=== PATIENT | female | born 1970 | race African-American/Black ===

== ENCOUNTER 2025-06-24 14:12 | Inpatient (IN) | payer MEDICARE, OTHER ==
[~2025-06-24] VITALS: Ht 182.9 cm; Wt 79.8 kg
[2025-06-24] MEDS: SODIUM CHLOR 0.9% PF (SALINE LOCK) 10ML VIAL/SYR IV SCH (05:23)
[2025-06-24] MEDS: methylPREDNISolone SOD SUCC 125 MG/2 ML VL IV SCH (06:00)
[~2025-06-24 14:12] MED LIST: DIPH25CA51 PO; FLUO-126 PO; RIS1T GT
[2025-06-24 14:22] VITALS: PULSE 81; RESP 22; O2SAT 98
--- NOTE | 2025-06-24 14:23 | ED.PDOC ---
SOB-HPI HPI Comments 54 y.o female with PMHx of arthritis, asthma, DM, GERD,and schizophrenia p resents to the ED via EMS for a chief complaint of SOB and a cough that began 3- 4 days ago. Upon EMS's arrival on the scene, the patient was observed in a tripod position and had wheezing in all lung deluna. EMS administered a nebulizer treatment, followed by CPAP, achieving a SpO2 in the mid-90s. Additionally, a dose IM Epinephrine and IV magnesium were given en route to the hospital. Patient is also a current tobacco smoker. At bedside, patient remained SOB and was unable to speak in full sentences. no other associating symptoms reported. Time Seen by MD: 14:07 Primary Care Provider: MD RALF Reviewed notes: Nurses Notes, Sales Trainer Notes, Medications, Allergies Information Source: Patient, Emergency Med Personnel Mode of Arrival: EMS Severity: Moderate Timing: Days Duration: Since onset Context: At Rest History of: Asthma Prehospital treatment: 12 Lead EKG, C-Pap, Oxygen, Treatment (EPi IM ) Modifying Factors: Nothing Associated Signs and Symptoms: Cough If cough with SOB: Productive Past Medical History PAST MEDICAL HISTORY: Arthritis, Asthma, DM, GERD, Schizophrenia Surgical History: Denies all surgeries MANAGER DRILLING History: No Pertinent MANAGER DRILLING History Family History Family History: Unknown Social History Smoker: Cigarettes Alcohol: Denies ETOH Use Drugs: Denies Drug Use Lives In: Home Constitutional: denies: chills, diaphoresis, fatigue, fever, malaise, sweats, weakness, others EENTM: denies: blurred vision, double vision, ear bleeding, ear discharge, ear drainage, ear pain, ear ringing, eye pain, eye redness, hearing loss, mouth pain, mouth swelling, nasal discharge, nose bleeding, nose congestion, nose pain, photophobia, tearing, throat pain, throat swelling, voice changes, others Respiratory: reports: cough, SOB at rest, shortness of breath, SOB with excertion; denies: hemoptysis, orthopnea, stridor, wheezing, others Cardiovascular: denies: chest pain, dizzy spells, diaphoresis, Dyspnea on exertion, edema, irregular heart beat, left arm pain, lightheadedness, palpitations, PND, syncope, others Gastrointestinal: denies: abdomen distended, abdominal pain, blood streaked bowels, constipated, diarrhea, dysphagia, difficulty swallowing, hematemesis, melena, nausea, poor appetite, poor fluid intake, rectal bleeding, rectal pain, vomiting, others Genitourinary: denies: abnormal vagina bleeding, burning, dyspareunia, dysuria, flank pain, frequency, hematuria, incontinence, pain, , vagina discharge, urgency, others Neurological: denies: dizziness, fainting, headache, left sided numbness, left sided weakness, numbness, paresthesia, pre-existing deficit, right sided numbness, right sided weakness, seizure, speech problems, tingling, tremors, weakness, others Musculoskeletal: denies: back pain, gout, joint pain, joint swelling, muscle pain, muscle stiffness, neck pain, others Integumetry: denies: bruises, change in color, change in hair/nails, dryness, laceration, lesions, lumps, rash, wounds, others Allergic/Immunocompromised: denies: Difficulty Healing, Frequent Infections, Hives, Itching, others Hematologic/Lymphatic: denies: anemia, blood clots, easy bleeding, easy bruising, swollen glands, others Endocrine: denies: excessive hunger, excessive sweating, excessive thirst, excessive urination, flushing, intolerance to cold, intolerance to heat, unexplained weight gain, unexplained weight loss, others Psychiatric: denies: anxiety, bipolar disorder, depression, hopeless, panic disorder, schizophrenia, sleepless, suicidal, others All Other Systems: Reviewed and Negative Physical Exam General Appearance: Moderate Distress HEENT: Other (Vitals and face symmetric. Moist mucous membranes.) Neck: Full Range of Motion, Normal Inspection Respiratory: Accessory Muscle Use, Decreased Breath Sounds, Respiratory Distress, Wheezing Cardiovascular: No Edema, No JVD, Regular Rate/Rhythm Breast Exam: Deferred Gastrointestinal: Non Tender, Soft Genitalia: Deferred Pelvic: Deferred Rectal: Deferred Extremities: Normal inspection, Normal range of motion, Non-tender, No pedal edema Neurologic: Alert (Oriented x4), Other (No gross focal deficit.) Cerebellar Function: NOT DONE Reflexes: NOT DONE Skin: Dry, Normal Color, Warm Lymphatic: NOT DONE Was a procedure done? Was a procedure done?: No Differential Dx Differential Diagnosis: Asthma, Bronchitis, CHF, COPD, Pneumonia, Respiratory Distress, URI X-Ray, Labs, Meds, VS Vital Signs Date Time Temp Pulse Resp B/P (MAP) Pulse Ox O2 Delivery O2 Flow Rate FiO2 06/24/25 14:35 98 Nasal Cannula* 6 44 06/24/25 14:22 81 22 98 Nasal Cannula* 6 44 06/24/25 14:21 22 99 Nasal Cannula* 4 36 06/24/25 14:20 98.6 81 22 167/108 (127) 98 98.6 06/24/25 14:15 97.7 90 28 161/117 97 97.7 Lab Test 06/24/25 14:53 Range/Units White Blood Count 6.8 4.4-10.8 10^3/uL Red Blood Count 5.11 4.0-5.20 10^6/uL Hemoglobin 15.5 12.2-16.2 g/dL Hematocrit 47.1 H 36.0-46.0 % Mean Corpuscular Volume 92.1 80.0-100.0 fL Mean Corpuscular Hemoglobin 30.2 28.0-32.0 pg Mean Corpuscular Hemoglobin Concent 32.8 32.0-36.0 g/dL Red Cell Distribution Width 15.0 H 11.8-14.3 % Platelet Count 331 140-450 10^3/uL Mean Platelet Volume 7.5 6.9-10.8 fL Neutrophils (%) (Auto) 55.4 37.0-80.0 % Lymphocytes (%) (Auto) 25.2 10.0-50.0 % Monocytes (%) (Auto) 10.9 0.0-12.0 % Eosinophils (%) (Auto) 7.8 H 0.0-7.0 % Basophils (%) (Auto) 0.7 0.0-2.0 % Neutrophils # (Auto) 3.8 1.6-8.6 10 ^3/uL Lymphocytes # (Auto) 1.7 0.4-5.4 10 ^3/uL Monocytes # (Auto) 0.7 0-1.3 10 ^3/uL Eosinophils # (Auto) 0.5 0-0.8 10 ^3/uL Basophils # (Auto) 0 0-0.2 10 ^3/uL Nucleated Red Blood Cells 0.0 % Sodium Level 144 136-145 mmol/L Potassium Level 3.8 3.5-5.1 mmol/L Chloride Level 110 H 98-107 mmol/L Carbon Dioxide Level 28 20-31 mmol/L Anion Gap 6 5-15 Blood Urea Nitrogen 7 L 9-23 mg/dL Creatinine 0.92 0.550-1.02 mg/dL Glomerular Filtration Rate Calc 73 >90 mL/min BUN/Creatinine Ratio 7.6 L 10.0-20.0 Serum Glucose 157 H 74-106 mg/dL Lactic Acid Level Pending Calcium Level 9.1 8.7-10.4 mg/dL Troponin I High Sensitivity 3 L </=34 ng/L B-Type Natriuretic Peptide 72.47 0-100 pg/mL Current Medications Medications (Trade) Dose Ordered Sig/Radha Route Start Time Stop Time Status Last Admin Methylprednisolone Sodium Succinate (Solu Medrol) 125 mg ONCE ONCE IV 06/24/25 14:15 06/24/25 14:16 DC 06/24/25 15:16 Albuterol (Ventolin Medneb) 5 mg ONCE ONCE NEB 06/24/25 14:15 06/24/25 14:16 DC 06/24/25 14:28 Ipratropium [place] (Atrovent Medneb) 0.5 mg ONCE ONCE NEB 06/24/25 14:15 06/24/25 14:16 DC 06/24/25 14:28 Ceftriaxone Sodium 50 ml @ 100 mls/hr ONCE ONCE IV 06/24/25 14:45 06/24/25 15:14 DC 06/24/25 15:15 PROCEDURE(s): CXRP - CHEST PORTABLE REASON: sob ORDER NUMBER(s): [id number], ACCESSION NUMBER(s): [id number] CHEST RADIOGRAPH Indication: sob Technique: Single frontal view of the chest was obtained Comparison: None FINDINGS: Lines and Tubes: None Lungs: Airspace disease right lower lobe. Pleura: No effusion. No pneumothorax. Cardiomediastinal contours: Unremarkable Bones: No acute osseous abnormality. IMPRESSION: 1. Airspace disease right lower lobe. X-Ray, Labs, Meds, VS Comment 54 y.o female with PMHx of arthritis, asthma, DM, GERD,and schizophrenia presents to the ED via EMS for a chief complaint of SOB and a cough that began 3-4 days ago Vitals remarkable for respiratory rate 28, BP 61/117, oxygen saturation 90% on room air hypoxic Exam remarkable for respiratory distress, bilateral wheezes and diminished breath sounds, accessory muscle use Rhythm strip independently interpreted by me: Sinus rhythm, rate 90, no ectopy. Chest x-ray IMPRESSION: 1. Airspace disease right lower lobe. CBC, basic metabolic panel, BNP and troponin unremarkable. Lactate pending Patient treated with the following in the ED: Albuterol 5 mg/Atrovent 0.5 mg nebulized, Solu-Medrol 125 mg IV, Rocephin 1 g IV, Zithromax 500 mg IV On re-evaluation, patient is saturating normally on nasal cannula and respiratory distress has improved. Other vitals were stable. Plan is to admit the patient for IV antibiotics and respiratory support as needed. Time of 1ST Reevaluation: 14:16 Reevaluation 1ST: Unchanged Patient Education/Counseling: Diagnosis, Treatment, Prognosis Family Education/Counseling: No Family Present SEPSIS Sepsis Screen Physician Orders Chest Portable (06/24/25 14:14) Urinalysis (06/24/25 14:14) Electrocardigram (06/24/25 14:14) Troponin-I Hs (06/24/25 15:14) Lactic Acid W/ Reflex Order (06/24/25 14:35) Blood Culture (06/24/25 14:35) Azithromycin 500mg/ 250ml (Zithromax 50 (06/24/25 15:30) Rapid Influenza A&B (06/24/25 14:35) Covid19 Antigen [place]abel (06/24/25 ) Vital Signs Date Time Temp Pulse Resp B/P (MAP) Pulse Ox O2 Delivery O2 Flow Rate FiO2 06/24/25 14:35 98 Nasal Cannula* 6 44 06/24/25 14:22 81 22 98 Nasal Cannula* 6 44 06/24/25 14:21 22 99 Nasal Cannula* 4 36 06/24/25 14:20 98.6 81 22 167/108 (127) 98 98.6 06/24/25 14:15 97.7 90 28 161/117 97 97.7 Laboratory Tests Test 06/24/25 14:53 Lactic Acid Level Pending White Blood Count 6.8 10^3/uL (4.4-10.8) Medications Medications Dose Ordered Sig/Radha Route Start Time Stop Time Status Last Admin Dose Admin Albuterol 5 mg ONCE ONCE NEB 06/24/25 14:15 06/24/25 14:16 DC 06/24/25 14:28 Ceftriaxone Sodium 50 ml @ 100 mls/hr ONCE ONCE IV 06/24/25 14:45 06/24/25 15:14 DC 06/24/25 15:15 Ipratropium [place] 0.5 mg ONCE ONCE NEB 06/24/25 14:15 06/24/25 14:16 DC 06/24/25 14:28 Methylprednisolone Sodium Succinate 125 mg ONCE ONCE IV 06/24/25 14:15 06/24/25 14:16 DC 06/24/25 15:16 Departure 1 Departure Time of Disposition: 15:41 Impression: Primary Impression: Acute hypoxic respiratory failure Additional Impressions: Asthma exacerbation Pneumonia Disposition: ADMITTED INPATIENT Admit to: Tele Condition: Guarded Critical Care Note Critical Care Time?: Yes (35 min-critical care time only) Critical care comment: Critical care time including multiple bedside re-evaluations, review of lab and imaging studies, and discussion of the case with the admitting provider. Patient is high risk for respiratory decompensation. Stability Stability form required: No I personally scribed for LIGIA FERREIRA MD ([email or web address]) on 06/24/25 at 14:23. Electronically submitted by Gillian Gonzales ([facility]). LIGIA FERREIRA MD Jun 24, 2025 14:23
[2025-06-24] MEDS: IPRATROPIUM BROM 0.5 MG/2.5ML INH SOL NEB ONE ×2 (14:28→18:25)
[2025-06-24] MEDS: ALBUTEROL SULF 2.5 MG/0.5ML(0.5%) NEB SOLN NEB ONE ×2 (14:28→18:25)
--- NOTE | 2025-06-24 14:40 | DVH ---
CHEST RADIOGRAPH Indication: sob Technique: Single frontal view of the chest was obtained Comparison: None FINDINGS: Lines and Tubes: None Lungs: Airspace disease right lower lobe. Pleura: No effusion. No pneumothorax. Cardiomediastinal contours: Unremarkable Bones: No acute osseous abnormality. IMPRESSION: 1. Airspace disease right lower lobe.
[2025-06-24] MEDS: cefTRIAXone 1GM/50ML D5W 50 ML IV ONE (15:15)
[2025-06-24] MEDS: methylPREDNISolone SOD SUCC 125 MG/2 ML VL IV ONE (15:16)
[2025-06-24 15:19] LABS: Hematocrit 47.1 % (36.0-46.0); Hemoglobin 15.5 g/dL (12.2-16.2); Mean Corpuscular Hemoglobin 30.2 pg (28.0-32.0); Mean Corpuscular Volume 92.1 fL (80.0-100.0); Nucleated Red Blood Cells % 0.0 %
[2025-06-24 15:24] LABS: Potassium 3.8 mmol/L (3.5-5.1); Sodium 144 mmol/L (136-145)
[2025-06-24 15:25] LABS: Anion Gap 6 (5-15); Carbon Dioxide 28 mmol/L (20-31)
[2025-06-24 15:26] LABS: Calcium 9.1 mg/dL (8.7-10.4)
[2025-06-24 15:30] LABS: BUN/Creatinine Ratio 7.6 (10.0-20.0); Blood Urea Nitrogen 7 mg/dL (9-23); Chloride 110 mmol/L (98-107); Glucose 157 mg/dL (74-106)
[2025-06-24] MEDS: AZITHROMYCIN 500MG/ 250ML 250 ML IV ONE (16:41)
[2025-06-24] MEDS: hydrALAZINE HCL 20 MG/ML VL IV ONE (17:04)
[2025-06-24] MEDS: LABETALOL HCL 20 MG/4 ML VL IV ONE (18:05)
[2025-06-24 18:09] LABS: Urine Protein, UAD TRACE (Negative)
[2025-06-24] MEDS: ALBUTEROL SULF 2.5 MG/0.5ML(0.5%) NEB SOLN ONE (18:26)
[2025-06-24] MEDS: IPRATROPIUM BROM 0.5 MG/2.5ML INH SOL ONE (18:26)
--- NOTE | 2025-06-24 19:51 | DVHHP2 ---
Admitting Diagnosis: Shortness of breaths History of Present Illness 54 y.o female with PMHx of arthritis, asthma, DM, GERD,and schizophrenia presents to the ED via EMS for a chief complaint of SOB and a cough that began 3-4 days ago. Upon EMS's arrival on the scene, the patient was observed in a tripod position and had wheezing in all lung deluna. EMS administered a nebulizer treatment, followed by CPAP, achieving a SpO2 in the mid-90s. Additionally, a dose IM Epinephrine and IV magnesium were given en route to the hospital. Patient is also a current tobacco smoker. At bedside, patient remained SOB and was unable to speak in full sentences. no other associating symptoms reported. PAST MEDICAL HISTORY: Arthritis, Asthma, DM, GERD, Schizophrenia Surgical History: Denies all surgeries BANKING SERVICES CLERK History: No Pertinent BANKING SERVICES CLERK History Family History Family History: Unknown Social History Smoker: Cigarettes Alcohol: Denies ETOH Use Drugs: Denies Drug Use Lives In: Home Patient Family History: Diabetes mellitus G8 MOTHER Hypertension G8 MOTHER Allergies: Coded Allergies: NO KNOWN ALLERGIES (Unverified , 06/24/17) Home Meds Reported Medications Fluoxetine Hcl (Fluoxetine Hcl) 10 Mg Cap, 10 MG PO DAILY for 30 Days, MG 06/24/17 Diphenhydramine Hcl (BENADRYL CAPSULE) 25 Mg Cp, 50 MG PO DAILY, CP 06/24/17 Risperidone (RisperDAL TABLET) 1 Mg Tb, 1 MG GT 06/24/17 Current Medications Current Medications Medications (Trade) Dose Ordered Sig/Radha Route PRN Reason Start Time Stop Time Status Last Admin Ceftriaxone Sodium 50 ml @ 100 mls/hr DAILY@09 IV 06/25/25 09:00 UNV Azithromycin 250 ml @ 125 mls/hr DAILY IV 06/25/25 10:00 UNV Methylprednisolone Sodium Succinate (Solu Medrol) 60 mg Q8HR IV 06/24/25 22:00 UNV Albuterol (Ventolin Medneb) 2.5 mg Q4HWA NEB 06/24/25 22:00 UNV Ipratropium [place] (Atrovent Medneb) 0.5 mg Q4HWA NEB 06/24/25 22:00 UNV Vital Signs Vital Signs Date Time Temp Pulse Resp B/P (MAP) Pulse Ox O2 Delivery O2 Flow Rate FiO2 06/24/25 19:05 90 164/112 06/24/25 18:15 20 96 Non-Rebreather 15 N/A 06/24/25 14:20 98.6 98.6 Physical Exam 54 years old woman, well nourished well. No apparent distress HEENT-atraumatic normocephalic Heart-regular rate and rhythm Lungs decreased breath sounds throughout the lung Abdomen nondistended nontender nondistended Musculoskeletal-no edema cyanosis SEPSIS Sepsis Screen Date sepsis recognized/suspect: Jun 24, 2025 Time Sepsis recognized/suspect: 1433 Recent Procedure: No On Antibiotic Therapy: No Respiratory Rate >20: No Heart Rate >90: No Temp<36 C (96.8 F) or >38.3 C: No SBP <90 or MAP <65 mmHG: No New Acute Mental Status Change: No Is the patient on CPAP, BIPAP,: No Physician Orders Chest Portable (06/24/25 14:14) Electrocardigram (06/24/25 14:14) Blood Culture (06/24/25 14:35) Rapid Influenza A&B (06/24/25 14:35) Covid19 Antigen Mabel (06/24/25 ) Bed Rest With Hob At 30-45 Deg (06/24/25 18:59) Communication Order (06/24/25 18:59) Ceftriaxone 1gm/50ml D5w (Rocephin) (06/25/25 09:00) Azithromycin 500mg/ 250ml (Zithromax 50 (06/25/25 10:00) Respiratory Culture W/ Gs (06/24/25 20:16) Methylprednisolone Sod Succ (Solu Medrol (06/24/25 22:00) Albuterol Medneb (Ventolin Medneb) (06/24/25 22:00) Ipratropium Medneb (Atrovent Medneb) (06/24/25 22:00) Vital Signs Date Time Temp Pulse Resp B/P (MAP) Pulse Ox O2 Delivery O2 Flow Rate FiO2 06/24/25 19:05 90 164/112 06/24/25 18:15 20 96 Non-Rebreather 15 N/A 06/24/25 18:05 93 133/103 06/24/25 18:00 90 22 164/112 (129) 98 06/24/25 17:04 159/109 06/24/25 16:00 66 22 154/107 (123) 98 06/24/25 14:35 98 Nasal Cannula* 6 44 06/24/25 14:22 81 22 98 Nasal Cannula* 6 44 06/24/25 14:21 22 99 Nasal Cannula* 4 36 06/24/25 14:20 98.6 81 22 167/108 (127) 98 98.6 06/24/25 14:15 97.7 90 28 161/117 97 97.7 Laboratory Tests Test 06/24/25 14:53 Lactic Acid Level 1.1 mmol/L (0.4-2.0) White Blood Count 6.8 10^3/uL (4.4-10.8) Medications Medications Dose Ordered Sig/Radha Route Start Time Stop Time Status Last Admin Dose Admin Albuterol 5 mg ONCE ONCE NEB 06/24/25 14:15 06/24/25 14:16 DC 06/24/25 14:28 Albuterol 5 mg ONCE ONCE NEB 06/24/25 18:15 06/24/25 18:16 DC 06/24/25 18:25 Azithromycin 250 ml @ 125 mls/hr ONCE ONCE IV 06/24/25 15:30 06/24/25 17:29 DC 06/24/25 16:41 Ceftriaxone Sodium 50 ml @ 100 mls/hr ONCE ONCE IV 06/24/25 14:45 06/24/25 15:14 DC 06/24/25 15:15 Hydralazine HCl 5 mg ONCE ONCE IV 06/24/25 16:45 06/24/25 16:46 DC 06/24/25 17:04 Ipratropium [place] 0.5 mg ONCE ONCE NEB 06/24/25 14:15 06/24/25 14:16 DC 06/24/25 14:28 Ipratropium [place] 0.5 mg ONCE ONCE NEB 06/24/25 18:15 06/24/25 18:16 DC 06/24/25 18:25 Labetalol HCl 10 mg ONCE ONCE IV 06/24/25 18:00 06/24/25 18:01 DC 06/24/25 18:05 Methylprednisolone Sodium Succinate 125 mg ONCE ONCE IV 06/24/25 14:15 06/24/25 14:16 DC 06/24/25 15:16 Results Labs Test 06/24/25 17:32 06/24/25 15:47 06/24/25 14:53 Range/Units Urine Color Yellow Yellow Urine Clarity Clear Clear Urine pH 5.5 5.0-9.0 Urine Specific [place] 1.016 1.001-1.035 Urine Protein Trace H Negative Urine Ketones Negative Negative Urine Blood Negative Negative /uL Urine Nitrite Negative Negative Urine Bilirubin Negative Negative Urine Urobilinogen Normal Negative mg/dL Urine Leukocyte Esterase Negative Negative /uL Urine RBC 3 0 - 4 /hpf Urine Microscopic WBC 1 0-5 /HPF Urine Squamous Epithelial Cells Few <5 /hpf Urine Bacteria None seen None Seen /hpf Urine Hyaline Casts Few 0 - 2 /lpf Urine Mucus Few None Seen Urine Glucose Normal Normal mg/dL Troponin I High Sensitivity 4 </=34 ng/L White Blood Count 6.8 4.4-10.8 10^3/uL Red Blood Count 5.11 4.0-5.20 10^6/uL Hemoglobin 15.5 12.2-16.2 g/dL Hematocrit 47.1 H 36.0-46.0 % Mean Corpuscular Volume 92.1 80.0-100.0 fL Mean Corpuscular Hemoglobin 30.2 28.0-32.0 pg Mean Corpuscular Hemoglobin Concent 32.8 32.0-36.0 g/dL Red Cell Distribution Width 15.0 H 11.8-14.3 % Platelet Count 331 140-450 10^3/uL Mean Platelet Volume 7.5 6.9-10.8 fL Neutrophils (%) (Auto) 55.4 37.0-80.0 % Lymphocytes (%) (Auto) 25.2 10.0-50.0 % Monocytes (%) (Auto) 10.9 0.0-12.0 % Eosinophils (%) (Auto) 7.8 H 0.0-7.0 % Basophils (%) (Auto) 0.7 0.0-2.0 % Neutrophils # (Auto) 3.8 1.6-8.6 10 ^3/uL Lymphocytes # (Auto) 1.7 0.4-5.4 10 ^3/uL Monocytes # (Auto) 0.7 0-1.3 10 ^3/uL Eosinophils # (Auto) 0.5 0-0.8 10 ^3/uL Basophils # (Auto) 0 0-0.2 10 ^3/uL Nucleated Red Blood Cells 0.0 % Sodium Level 144 136-145 mmol/L Potassium Level 3.8 3.5-5.1 mmol/L Chloride Level 110 H 98-107 mmol/L Carbon Dioxide Level 28 20-31 mmol/L Anion Gap 6 5-15 Blood Urea Nitrogen 7 L 9-23 mg/dL Creatinine 0.92 0.550-1.02 mg/dL Glomerular Filtration Rate Calc 73 >90 mL/min BUN/Creatinine Ratio 7.6 L 10.0-20.0 Serum Glucose 157 H 74-106 mg/dL Lactic Acid Level 1.1 0.4-2.0 mmol/L Calcium Level 9.1 8.7-10.4 mg/dL B-Type Natriuretic Peptide 72.47 0-100 pg/mL Primary Diagnosis Shortness of breaths likely due to asthma exacerbation Right lung pneumonia Plan Ceftriaxone, azithromycin for empiric antibiotics Check pro, sputum culture Solu-Medrol 60 q.8 hours Regular diet Resume home meds Full code Lovenox for DVT prophylaxis PPI for GI prophylaxis Plan discussed with: Patient Problems List: (1) Pneumonia Status: Acute (2) Asthma exacerbation Status: Acute (3) Acute hypoxic respiratory failure Status: Acute Date of Service: Jun 24, 2025 Billing Provider: SAMUEL BARRON MD Common Visit Codes: [id number] INP/OBS CARE (HIGH) SAMUEL BARRON MD Jun 24, 2025 19:51
[2025-06-24] MEDS ORDERED: ONDANSETRON HCL 4 MG/2 ML VIAL IV PRN (20:30)
[2025-06-24] MEDS ORDERED: DOCUSATE SOD 100 MG CAP PO PRN (20:30)
[2025-06-24] MEDS ORDERED: ACETAMINOPHEN 325 MG TAB PO PRN (20:30)
[2025-06-24 21:40] VITALS: PULSE 88; RESP 18; O2SAT 98
[2025-06-24 21:49] VITALS: PULSE 87; RESP 19; O2SAT 98
[2025-06-24 21:51] VITALS: O2SAT 98
[2025-06-24 22:20] VITALS: BP 146/91; PULSE 87; RESP 20; O2SAT 98
[2025-06-25] VITALS (10 sets, daily range): BP systolic 140; BP diastolic 84; PULSE 69–90; RESP 13–31; TEMP 98; O2SAT 94–100
[2025-06-25] MEDS: ALBUTEROL SULF 2.5 MG/0.5ML(0.5%) NEB SOLN NEB SCH (06:00)
[2025-06-25 06:22] LABS: Hematocrit 48.7 % (36.0-46.0); Hemoglobin 16.3 g/dL (12.2-16.2); Mean Corpuscular Hemoglobin 30.7 pg (28.0-32.0); Mean Corpuscular Volume 91.5 fL (80.0-100.0); Nucleated Red Blood Cells % 0.1 %
[2025-06-25 06:38] LABS: Albumin 4.5 g/dL (3.2-4.8); Alkaline Phosphatase 100 U/L (46-116); Anion Gap 9 (5-15); BUN/Creatinine Ratio 10.0 (10.0-20.0); Bilirubin, Total 0.4 mg/dL (0.2-1.0); Calcium 9.5 mg/dL (8.7-10.4); Carbon Dioxide 25 mmol/L (20-31); Potassium 4.4 mmol/L (3.5-5.1); Sodium 141 mmol/L (136-145); Total Protein 7.8 g/dL (5.7-8.2)
[2025-06-25 06:40] LABS: Alanine Aminotransferase 40 U/L (7-40); Blood Urea Nitrogen 8 mg/dL (9-23); Chloride 107 mmol/L (98-107); Glucose 132 mg/dL (74-106)
[2025-06-25] MEDS: IPRATROPIUM BROM 0.5 MG/2.5ML INH SOL NEB SCH (07:27)
[2025-06-25] MEDS: risperiDONE 1 MG TAB PO SCH (09:57)
[2025-06-25] MEDS: PANTOPRAZOLE 40 MG/10 ML VIAL INJ IV SCH (09:59)
[2025-06-25] MEDS: ENOXAPARIN SOD 40 MG/0.4 ML SYRINGE SC SCH (09:59)
[2025-06-25] MEDS: HYDROcodone-ACET 5/325MG TAB PO PRN (10:13)
[2025-06-25] MEDS: AZITHROMYCIN 500MG/ 250ML 250 ML IV SCH (10:13)
[2025-06-25 10:16] LABS: COVID19 ANTIGEN SOFIA FIA NEGATIVE (NEGATIVE)
[2025-06-25] MEDS: cefTRIAXone 1GM/50ML D5W 50 ML IV SCH (15:02)
--- NOTE | 2025-06-25 18:54 | DVHPN2 ---
Subjective Cross covering for [place] [facility] Hospitalist today. Patient's chart is reviewed and patient is seen evaluated and discussed with the nurse. Admitted for generalized weakness and noted to have a influenza type B infection. Oxygenating normally on room air. Changes from previous H/P or p: No Changes Objective Vitals Vital Signs Date Time Temp Pulse Resp B/P (MAP) Pulse Ox O2 Delivery O2 Flow Rate FiO2 06/25/25 18:21 97 Room Air 0.0 06/25/25 18:21 86 16 06/25/25 18:21 21 06/25/25 17:00 146/96 (113) 06/25/25 11:16 97.8 97.8 Intake/Output Intake and Output 06/25/25 07:00 Intake Total 300 ml Balance 300 ml Intake IV Total 300 ml Exam Alert awake oriented x3. HEENT neck supple no JVD. Heart regular rate and rhythm S1-S2. Lungs fair air movement without rales wheezes. Abdomen soft nontender positive bowel sounds. Extremities no edema positive pulses. Neurologic no focal deficits Medications Current Medications Medications Dose Ordered Sig/Radha Route Start Time Stop Time Status Last Admin Dose Admin Ceftriaxone Sodium 50 ml @ 100 mls/hr DAILY@1500 IV 06/25/25 15:00 06/25/25 15:02 100 MLS/HR Azithromycin 250 ml @ 125 mls/hr DAILY IV 06/25/25 10:00 06/25/25 10:13 125 MLS/HR Methylprednisolone Sodium Succinate 60 mg Q8HR IV 06/24/25 22:00 06/25/25 14:16 60 MG Albuterol 2.[address] [facility] 06/24/25 22:00 06/25/25 18:11 2.5 MG Ipratropium [place] 0.[address] [facility] 06/24/25 22:00 06/25/25 18:11 0.5 MG Fluoxetine HCl 10 mg DAILY PO 06/25/25 10:00 06/25/25 09:58 10 MG Risperidone 1 mg DAILY PO 06/25/25 10:00 06/25/25 09:57 1 MG Sodium Chloride 10 ml Q8HR IV 06/24/25 22:00 06/25/25 14:17 10 ML Docusate Sodium 100 mg BIDPRN PRN PO 06/24/25 20:30 Acetaminophen 650 mg Q6HP PRN PO 06/24/25 20:30 Acetaminophen/ Hydrocodone Bitart 1 tab Q4HP PRN PO 06/24/25 20:30 06/25/25 14:17 1 TAB Ondansetron HCl 4 mg Q4HP PRN IV 06/24/25 20:30 Enoxaparin Sodium 40 mg DAILY SC 06/25/25 10:00 06/25/25 09:59 40 MG Pantoprazole Sodium 40 mg DAILY IV 06/25/25 10:00 06/25/25 09:59 40 MG Laboratory Results Laboratory Tests 06/25/25 06:00 Chemistry Test 06/25/25 06:00 Albumin 4.5 g/dL (3.2-4.8) Calcium Level 9.5 mg/dL (8.7-10.4) Total Protein 7.8 g/dL (5.7-8.2) LFT Test 06/25/25 06:00 Alanine Aminotransferase (ALT) 40 U/L (7-40) Alkaline Phosphatase 100 U/L (46-116) Aspartate Amino Transferase (AST) 39 U/L (13-40) Total Bilirubin 0.4 mg/dL (0.2-1.0) Urinalysis Test 06/24/25 17:32 Urine Color Yellow (Yellow) Urine Clarity Clear (Clear) Urine pH 5.5 (5.0-9.0) Urine Specific [place] 1.016 (1.001-1.035) Urine Protein Trace (Negative) H Urine Ketones Negative (Negative) Urine Blood Negative /uL (Negative) Urine Nitrite Negative (Negative) Urine Bilirubin Negative (Negative) Urine Urobilinogen Normal mg/dL (Negative) Urine Leukocyte Esterase Negative /uL (Negative) Urine RBC 3 /hpf (0 - 4) Urine Microscopic WBC 1 /HPF (0-5) Urine Squamous Epithelial Cells Few /hpf (<5) Urine Bacteria None seen /hpf (None Seen) Urine Hyaline Casts Few /lpf (0 - 2) Urine Mucus Few (None Seen) Urine Glucose Normal mg/dL (Normal) Microbiology Microbiology Date/Time Source Procedure Growth Status 06/24/25 14:53 Blood Blood Culture - Preliminary NO GROWTH AFTER 24 HOURS OF INCUBATION. Resulted Assessment/Plan Assessment/Plan I will add Tamiflu to her treatment regimen. Continue steroids breathing treatments and rest of supportive care and treatment. Physical therapy evaluation. Further clinical management per clinical course. Plan discussed with: Patient, Other My Orders Orders - SHAWN SOSA MD Procedure Category Date Status Time Oseltamivir 75mg PHA 06/25/25 Verified Capsule (Tamiflu 75mg 22:00 Problem List: (1) Asthma exacerbation (2) Acute hypoxic respiratory failure (3) Influenza B (4) Influenzal bronchitis Date of Service: Jun 25, 2025 Billing Provider: SHAWN SOSA MD Common Visit Codes: [id number] INP/OBS CARE(MOD) SHAWN SOSA MD Jun 25, 2025 18:54
[2025-06-25] MEDS: OSELTAMIVIR 75 MG CAP PO SCH (20:46)
[2025-06-26] VITALS (20 sets, daily range): BP systolic 130–155; BP diastolic 36–96; PULSE 75–114; RESP 14–20; TEMP 97.6–98.3; O2SAT 90–100
--- NOTE | 2025-06-26 18:06 | DVHPN2 ---
Subjective Cross covering for [facility] hospitalist today. Feeling better. Admitted for generalized weakness and noted to have a influenza type B infection. Oxygenating normally on room air. Changes from previous H/P or p: No Changes Objective Vitals Vital Signs Date Time Temp Pulse Resp B/P (MAP) Pulse Ox O2 Delivery O2 Flow Rate FiO2 06/26/25 18:01 84 20 98 06/26/25 17:53 Nasal Cannula 2.0 06/26/25 17:53 28 06/26/25 17:00 98.2 140/36 (70) 98.2 Intake/Output Intake and Output 06/26/25 07:00 Intake Total 950 ml Balance 950 ml Intake Oral 650 ml IV Total 300 ml # Voids 4 Exam Alert awake oriented x3. HEENT neck supple no JVD. Heart regular rate and rhythm S1-S2. Lungs fair air movement without rales wheezes. Abdomen soft nontender positive bowel sounds. Extremities no edema positive pulses. Neurologic no focal deficits Medications Current Medications Medications Dose Ordered Sig/Radha Route Start Time Stop Time Status Last Admin Dose Admin Ceftriaxone Sodium 50 ml @ 100 mls/hr DAILY@1500 IV 06/25/25 15:00 06/26/25 14:40 100 MLS/HR Azithromycin 250 ml @ 125 mls/hr DAILY IV 06/25/25 10:00 06/26/25 08:33 125 MLS/HR Methylprednisolone Sodium Succinate 60 mg Q8HR IV 06/24/25 22:00 06/26/25 14:40 60 MG Albuterol 2.5 mg Q4HWA [facility] 06/24/25 22:00 06/26/25 17:53 2.5 MG Ipratropium [place] 0.5 mg Q4HWA [facility] 06/24/25 22:00 06/26/25 17:53 0.5 MG Fluoxetine HCl 10 mg DAILY PO 06/25/25 10:00 06/26/25 08:33 10 MG Risperidone 1 mg DAILY PO 06/25/25 10:00 06/26/25 08:33 1 MG Sodium Chloride 10 ml Q8HR IV 06/24/25 22:00 06/26/25 08:33 10 ML Docusate Sodium 100 mg BIDPRN PRN PO 06/24/25 20:30 Acetaminophen 650 mg Q6HP PRN PO 06/24/25 20:30 Acetaminophen/ Hydrocodone Bitart 1 tab Q4HP PRN PO 06/24/25 20:30 06/26/25 12:06 1 TAB Ondansetron HCl 4 mg Q4HP PRN IV 06/24/25 20:30 Enoxaparin Sodium 40 mg DAILY SC 06/25/25 10:00 06/26/25 08:32 40 MG Pantoprazole Sodium 40 mg DAILY IV 06/25/25 10:00 06/26/25 08:32 40 MG Oseltamivir Phosphate 75 mg Q12H PO 06/25/25 20:00 06/30/25 08:01 06/26/25 08:32 75 MG Laboratory Results Laboratory Tests 06/25/25 06:00 Urinalysis Test 06/24/25 17:32 Urine Color Yellow (Yellow) Urine Clarity Clear (Clear) Urine pH 5.5 (5.0-9.0) Urine Specific [place] 1.016 (1.001-1.035) Urine Protein Trace (Negative) H Urine Ketones Negative (Negative) Urine Blood Negative /uL (Negative) Urine Nitrite Negative (Negative) Urine Bilirubin Negative (Negative) Urine Urobilinogen Normal mg/dL (Negative) Urine Leukocyte Esterase Negative /uL (Negative) Urine RBC 3 /hpf (0 - 4) Urine Microscopic WBC 1 /HPF (0-5) Urine Squamous Epithelial Cells Few /hpf (<5) Urine Bacteria None seen /hpf (None Seen) Urine Hyaline Casts Few /lpf (0 - 2) Urine Mucus Few (None Seen) Urine Glucose Normal mg/dL (Normal) Microbiology Microbiology Date/Time Source Procedure Growth Status 06/24/25 14:53 Blood Blood Culture - Preliminary NO GROWTH AFTER 48 HOURS OF INCUBATION. Resulted Assessment/Plan Assessment/Plan To continue current supportive care and treatment as she is on. Physical therapy evaluation. Further clinical management per clinical course. Discussed with the nurse regarding care plan Plan discussed with: Patient, Other My Orders Orders - SHAWN SOSA MD Procedure Category Date Status Time Oseltamivir 75mg PHA 06/25/25 In Process Capsule (Tamiflu 75mg 20:00 Pt Request For Service PT 06/25/25 Logged 18:54 * [employer] Operator CONS 06/25/25 Transmitted Consult Hepatitis B Surface LAB 06/26/25 In Process Antigen 01:34 Hepatitis C Antibody LAB 06/26/25 In Process 01:34 Education - Smoking BELIA 06/26/25 In Process Cessation 01:34 * Dietary Consult CONS 06/26/25 Transmitted 01:34 * Rock [employer] Operator CONS 06/26/25 Transmitted Consult 01:34 Problem List: (1) Asthma exacerbation (2) Acute hypoxic respiratory failure (3) Influenza B (4) Influenzal bronchitis Date of Service: Jun 26, 2025 Billing Provider: SHAWN SOSA MD Common Visit Codes: [id number] INP/OBS CARE(MOD) SHAWN SOSA MD Jun 26, 2025 18:06
[2025-06-27] VITALS (11 sets, daily range): BP systolic 144–164; BP diastolic 80–112; PULSE 64–100; RESP 16–20; TEMP 36.9; O2SAT 96–100
[2025-06-27 07:16] LABS: Hematocrit 40.9 % (36.0-46.0); Hemoglobin 13.9 g/dL (12.2-16.2); Mean Corpuscular Hemoglobin 31.0 pg (28.0-32.0); Mean Corpuscular Volume 91.4 fL (80.0-100.0); Nucleated Red Blood Cells % 0.1 %
[2025-06-27 07:38] LABS: Alanine Aminotransferase 29 U/L (7-40); Albumin 4.0 g/dL (3.2-4.8); Alkaline Phosphatase 77 U/L (46-116); Anion Gap 8 (5-15); BUN/Creatinine Ratio 17.5 (10.0-20.0); Blood Urea Nitrogen 14 mg/dL (9-23); Calcium 8.9 mg/dL (8.7-10.4); Carbon Dioxide 27 mmol/L (20-31); Potassium 4.2 mmol/L (3.5-5.1); Sodium 142 mmol/L (136-145); Total Protein 6.5 g/dL (5.7-8.2)
[2025-06-27 07:39] LABS: Bilirubin, Total 0.3 mg/dL (0.2-1.0)
[2025-06-27 07:42] LABS: Chloride 107 mmol/L (98-107); Glucose 122 mg/dL (74-106)
[2025-06-27 11:18] LABS: Hepatitis B Surface Antigen Negative (Negative); Hepatitis C Antibody Negative (Negative)
[2025-06-27] MEDS ORDERED: IPRA0.00 IN (14:31)
[2025-06-27] MEDS ORDERED: TAMIF30 PO (14:31)
[2025-06-27] MEDS ORDERED: MONT-8 PO (14:31)
[2025-06-27] MEDS ORDERED: FAMO-161 PO (14:31)
[2025-06-27] MEDS ORDERED: PRED20TA2 PO (14:31)
--- NOTE | 2025-06-27 14:33 | DVHDS2 ---
Discharge Summary Date of Admission Jun 24, 2025 at 20:17 Date of Discharge: Jun 27, 2025 Labs/Diagnostic Data: Laboratory Results Test 06/27/25 05:04 06/26/25 07:15 06/24/25 17:32 06/24/25 15:47 White Blood Count 10.8 10^3/uL (4.4-10.8) Red Blood Count 4.47 10^6/uL (4.0-5.20) Hemoglobin 13.9 g/dL (12.2-16.2) Hematocrit 40.9 % (36.0-46.0) Mean Corpuscular Volume 91.4 fL (80.0-100.0) Mean Corpuscular Hemoglobin 31.0 pg (28.0-32.0) Mean Corpuscular Hemoglobin Concent 33.9 g/dL (32.0-36.0) Red Cell Distribution Width 14.8 % (11.8-14.3) Platelet Count 316 10^3/uL (140-450) Mean Platelet Volume 7.9 fL (6.9-10.8) Neutrophils (%) (Auto) 86.8 % (37.0-80.0) Lymphocytes (%) (Auto) 6.1 % (10.0-50.0) Monocytes (%) (Auto) 7.1 % (0.0-12.0) Eosinophils (%) (Auto) 0.0 % (0.0-7.0) Basophils (%) (Auto) 0.0 % (0.0-2.0) Neutrophils # (Auto) 9.3 10 ^3/uL (1.6-8.6) Lymphocytes # (Auto) 0.7 10 ^3/uL (0.4-5.4) Monocytes # (Auto) 0.8 10 ^3/uL (0-1.3) Eosinophils # (Auto) 0 10 ^3/uL (0-0.8) Basophils # (Auto) 0 10 ^3/uL (0-0.2) Nucleated Red Blood Cells 0.1 % Sodium Level 142 mmol/L (136-145) Potassium Level 4.2 mmol/L (3.5-5.1) Chloride Level 107 mmol/L (98-107) Carbon Dioxide Level 27 mmol/L (20-31) Anion Gap 8 (5-15) Blood Urea Nitrogen 14 mg/dL (9-23) Creatinine 0.80 mg/dL (0.550-1.02) Glomerular Filtration Rate Calc 86 mL/min (>90) BUN/Creatinine Ratio 17.5 (10.0-20.0) Serum Glucose 122 mg/dL (74-106) Calcium Level 8.9 mg/dL (8.7-10.4) Total Bilirubin 0.3 mg/dL (0.2-1.0) Aspartate Amino Transferase (AST) 18 U/L (13-40) Alanine Aminotransferase (ALT) 29 U/L (7-40) Alkaline Phosphatase 77 U/L (46-116) Total Protein 6.5 g/dL (5.7-8.2) Albumin 4.0 g/dL (3.2-4.8) Hepatitis B Surface Antigen Negative (Negative) Hepatitis C Antibody Negative (Negative) Urine Color Yellow (Yellow) Urine Clarity Clear (Clear) Urine pH 5.5 (5.0-9.0) Urine Specific [place] 1.016 (1.001-1.035) Urine Protein Trace (Negative) Urine Ketones Negative (Negative) Urine Blood Negative /uL (Negative) Urine Nitrite Negative (Negative) Urine Bilirubin Negative (Negative) Urine Urobilinogen Normal mg/dL (Negative) Urine Leukocyte Esterase Negative /uL (Negative) Urine RBC 3 /hpf (0 - 4) Urine Microscopic WBC 1 /HPF (0-5) Urine Squamous Epithelial Cells Few /hpf (<5) Urine Bacteria None seen /hpf (None Seen) Urine Hyaline Casts Few /lpf (0 - 2) Urine Mucus Few (None Seen) Urine Glucose Normal mg/dL (Normal) Troponin I High Sensitivity 4 ng/L (</=34) Test 06/24/25 14:53 06/24/25 09:09 Lactic Acid Level 1.1 mmol/L (0.4-2.0) B-Type Natriuretic Peptide 72.47 pg/mL (0-100) Influenza Type A Antigen Negative (Negative) Influenza Type B Antigen Positive (Negative) SARS-CoV-2 Antigen (Rapid) Negative (NEGATIVE) Other Laboratory Tests 06/27/25 05:04 Final Diagnosis/Problems List (1) Asthma exacerbation (2) Acute hypoxic respiratory failure (3) Influenza B (4) Influenzal bronchitis Discharge Disposition: Home Discharge Instruct/Medications Diet: Consistent carbohydrate, Cardiac 2g Na,low cholest Activity: No Restrictions, As Tolerated Follow Up/Referral: With your primary care physician for further management of your asthma Medications: Take the asthma medications and other medications as prescribed per discharge med reconciliation list Scheduled Diphenhydramine Hcl (Benadryl Capsule), 50 MG PO DAILY, (Reported) Famotidine (Pepcid AC), 20 MG PO DAILY Fluoxetine Hcl (Fluoxetine Hcl), 10 MG PO DAILY, (Reported) Ipratropium-Albuterol (Ipratropium [place]/Albut), 1 LINDA IN TID Montelukast Sodium (Montelukast Sodium), 1 TAB PO DAILY Oseltamivir Phosphate (Tamiflu), 1 CAP PO BID Prednisone (Prednisone), 20 MG PO BID Miscellaneous Medications Risperidone (RisperDAL TABLET), 1 MG GT, (Reported) Discharge Statement: "Patient was advised to return to the ER or call 911 if any headaches, dizziness, shortness of breath, chest pain, abdominal pain, bleeding, fevers, or worsening of medical condition. Patient was counseled about treatment plan, medications, possible side effects, patientverbalized understanding. All questions were answered to the best of my ability. This discharge took greater then 30 minutes in planning, reviewing documentation, counseling the patient, and discussing with other team members." ASSESSMENT ASSESSMENT Assessment (1) Asthma exacerbation (2) Acute hypoxic respiratory failure (3) Influenza B (4) Influenzal bronchitis SHAWN SOSA MD Jun 27, 2025 14:33
== END 2025-06-27 18:30 | disposition home health service (06) | DRG 193 ==
LOC: ER 14:12 → EDBD 14:12 → OVERFLOW 20:17 → CENTRAL 06-25 20:26
PROVIDERS: ADMIT Hospitalist; ATTEND Hospitalist
DX: J10.1 Influenza due to other identified influenza virus with other respiratory manifestations (principal); J96.01 Acute respiratory failure with hypoxia; J45.901 Unspecified asthma with (acute) exacerbation; K21.9 Gastro-esophageal reflux disease without esophagitis; F20.9 Schizophrenia, unspecified; F17.210 Nicotine dependence, cigarettes, uncomplicated; Z20.822 Contact with and (suspected) exposure to COVID-19; E11.9 Type 2 diabetes mellitus without complications; Z83.3 Family history of diabetes mellitus; Z82.49 Family history of ischemic heart disease and other diseases of the circulatory system; Z79.899 Other long term (current) drug therapy
CPT/HCPCS: 36415; 71045; 80048; 80053; 81001; 83605; 83880; 84484; 85025; 86803; 87040; 87340; 87426; 87804; 94640; 96365; 96375; 97110; 97116; 97163; 97530; 99291; G0378; J2470